=== PATIENT | female | born 1950 | race African-American/Black ===

== ENCOUNTER 2016-12-17 16:27 | Emergency (ER) | payer OTHER, MEDICARE ==
[~2016-12-17] VITALS: Ht 160 cm; Wt 97.0 kg
[2016-12-17 17:50] VITALS: BP 136/74
[2016-12-17] MEDS ORDERED: KETOROLAC 60MG/2ML VIAL IM ONE (18:15)
== END 2016-12-17 18:48 | disposition home or self-care (01) ==
LOC: ER 16:40
DX: R07.89 Other chest pain (principal); I10 Essential (primary) hypertension; E11.9 Type 2 diabetes mellitus without complications; M19.90 Unspecified osteoarthritis, unspecified site; Z88.6 Allergy status to analgesic agent; V43.62XA Car passenger injured in collision with other type car in traffic accident, initial encounter; Y93.89 Activity, other specified; Y92.488 Other paved roadways as the place of occurrence of the external cause
CPT/HCPCS: 71010; 96372; 99283; J1885

== ENCOUNTER 2016-12-22 12:01 | Emergency (ER) | payer OTHER, MEDICARE ==
[~2016-12-22] VITALS: Ht 160 cm; Wt 97.0 kg
[2016-12-22 12:45] VITALS: BP 149/74
== END 2016-12-22 14:36 | disposition home or self-care (01) ==
LOC: ER 14:20
DX: R51 Headache (principal); M19.90 Unspecified osteoarthritis, unspecified site; I10 Essential (primary) hypertension; E11.9 Type 2 diabetes mellitus without complications; Z88.6 Allergy status to analgesic agent; V43.62XD Car passenger injured in collision with other type car in traffic accident, subsequent encounter
CPT/HCPCS: 70450; 99284

== ENCOUNTER 2018-01-16 23:03 | Emergency (ER) | payer SELFPAY ==
[~2018-01-16] VITALS: Ht 160 cm; Wt 96.0 kg
[2018-01-16 23:25] VITALS: BP 190/91
== END 2018-01-17 01:47 | disposition left against medical advice (07) ==
LOC: ER 23:03
DX: S80.02XA Contusion of left knee, initial encounter (principal); S80.01XA Contusion of right knee, initial encounter; V43.62XA Car passenger injured in collision with other type car in traffic accident, initial encounter; I10 Essential (primary) hypertension; E11.9 Type 2 diabetes mellitus without complications; M17.10 Unilateral primary osteoarthritis, unspecified knee; Y93.9 Activity, unspecified; Y92.410 Unspecified street and highway as the place of occurrence of the external cause; Z88.5 Allergy status to narcotic agent; Z88.6 Allergy status to analgesic agent
CPT/HCPCS: 71045; 72170; 73562; 99284; Z7610